=== PATIENT | male | born 1970 | race Hispanic/Latino ===

== ENCOUNTER 2021-04-21 09:18 | Emergency (ER) | payer BC ==
[2021-04-21 09:23] VITALS: BP 128/81
[2021-04-21] MEDS ORDERED: IBUPROFEN 800 MG TAB PO ONE (09:31)
--- NOTE | 2021-04-21 10:28 | XRay Report ---
RIGHT SHOULDER 3 VIEWS INDICATION / CLINICAL INFORMATION: Fall with right shoulder pain. COMPARISON: None available. FINDINGS: BONES / JOINT(S): There are eekb-vs-yelhjuqc degenerative changes involving the acromioclavicular mary nt with mild degenerative changes also noted involving the greater tuberosity of the humerus. There i s no evidence of acute fracture or subluxation. SOFT TISSUES: No significant abnormality. ADDITIONAL FINDINGS: The visualized right lung is clear. IMPRESSION: Degenerative changes without acute abnormality identified. Signer Name: Yasmayn Appiah MD Signed: 04/21/2021 10:23 AM Workstation Name: [id number]
--- NOTE | 2021-04-21 10:29 | XRay Report ---
CERVICAL SPINE 3 VIEWS INDICATION / CLINICAL INFORMATION: Fall with neck pain. COMPARISON: None available. FINDINGS: BONES / JOINT(S): There are minimal degenerative changes, most prominent at C5-6. There is no evidenc e of acute fracture or subluxation. SOFT TISSUES: The prevertebral soft tissues are normal. ADDITIONAL FINDINGS: The lung apices are clear. IMPRESSION: Minimal degenerative changes without acute abnormality identified. Signer Name: Yasmany Appiah MD Signed: 04/21/2021 10:25 AM Workstation Name: [id number]
--- NOTE | 2021-04-21 10:30 | XRay Report ---
LUMBOSACRAL SPINE 3 VIEWS INDICATION / CLINICAL INFORMATION: Fall with low back pain. COMPARISON: None available. FINDINGS: BONES / JOINT(S): There are mild degenerative changes involving the L5-S1 disc space. There are mild hypertrophic changes involving the facet joints in the lower lumbar spine bilaterally. The pedicles a re intact and the SI joints are normal. There is no evidence of acute fracture or subluxation. SOFT TISSUES: No significant abnormality. ADDITIONAL FINDINGS: There are surgical changes in the left upper abdomen. IMPRESSION: Mild spondylosis without acute abnormality. Signer Name: Yasmany Appiah MD Signed: 04/21/2021 10:26 AM Workstation Name: [id number]
--- NOTE | 2021-04-21 10:59 | Emergency Department Report ---
ED Fall HPI - General Chief Complaint: Fall Stated Complaint: ARM AND BACK INJURY Time Seen by Provider: 04/21/21 09:25 Source: patient Mode of arrival: Ambulatory Limitations: No Limitations - History of Present Illness Initial Comments: This is a 50-year-old male nontoxic, well nourished in appearance, no acute signs of distress presents to the ED with c/o of right shoulder pain, neck and lower back pain status post fall that occurred yesterday. Patient stated he was at [facility] and leaned over a table which broke and hit his right-sided should er/neck area and had a fall and developed lower back pains. Patient denies any other injuries or complaints. Patient denies any LOC. Patient denies loss of consciousness, head trauma, ecchymosis, chest pain, short of breath, headache, blurry vision, fever, chills, stiff neck, decreased range of motion, bladder or bowel instability, diaphoresis, nausea, vomiting, abdominal pain, joint pain or swelling, visual changes, chest wall tenderness, numbness or tingling sensation extremity. Patient agrees to good rectal tone with no bladder overflow. Patient is currently ambulatory with no assistance. Patient denies any EtOH or recreational drugs. Patient denies any drug allergies or significant PMH. MD Complaint: fall -: days(s) When Fall Occurred: unsure Loss of Consciousness: none Prolonged Down Time?: no Symptoms Prior to Fall: none Location: neck, back Location - Extremities: Right: Shoulder Severity: mild Severity scale (0 -10): 8 Quality: aching Context: tripped/slipped Associated Symptoms: neck pain. denies: headache, numbness, weakness, chest paint, shortness of breath, abdominal pain, hematuria, unable to walk, lightheaded, vertigo, confusion - Related Data Previous Rx's Medication Instructions Recorded Last Taken Type Cyclobenzaprine [Flexeril] 10 mg PO QHS PRN #10 tablet 04/21/21 Unknown Rx Naproxen 500 mg PO Q12H PRN #12 tablet 04/21/21 Unknown Rx Allergies Allergy/AdvReac Type Severity Reaction Status Date / Time SEAFOOD Allergy Hives Uncoded 04/21/21 09:21 ED Review of Systems ROS: Stated complaint: ARM AND BACK INJURY Other details as noted in HPI Comment: All other systems reviewed and negative Constitutional: denies: chills, fever Eyes: denies: eye pain, eye discharge, vision change ENT: denies: ear pain, throat pain Respiratory: denies: cough, shortness of breath, wheezing Cardiovascular: denies: chest pain, palpitations Endocrine: no symptoms reported Gastrointestinal: denies: abdominal pain, nausea, diarrhea Genitourinary: denies: urgency, dysuria Musculoskeletal: back pain. denies: joint swelling, arthralgia Skin: denies: rash, lesions Neurological: denies: headache, weakness, paresthesias Psychiatric: denies: anxiety, depression Hematological/Lymphatic: denies: easy bleeding, easy bruising ED Past Medical Hx - Past Medical History Previous Medical History?: No - Surgical History Hx Cholecystectomy: Yes - Medications Home Medications: Home Medications Medication Instructions Recorded Confirmed Last Taken Type Cyclobenzaprine [Flexeril] 10 mg PO QHS PRN #10 tablet 04/21/21 Unknown Rx Naproxen 500 mg PO Q12H PRN #12 tablet 04/21/21 Unknown Rx ED Physical Exam - General Limitations: No Limitations General appearance: alert, in no apparent distress - Head Head exam: Present: atraumatic, normocephalic - Eye Eye exam: Present: normal appearance, PERRL, EOMI - ENT ENT exam: Present: normal exam, normal orophraynx - Neck Neck exam: Present: normal inspection, full ROM. Absent: lymphadenopathy - Respiratory Respiratory exam: Present: normal lung sounds bilaterally. Absent: respiratory distress, wheezes, rales, rhonchi, stridor, chest wall tenderness, accessory muscle use, decreased breath sounds, prolonged expiratory - Cardiovascular Cardiovascular Exam: Present: regular rate, normal rhythm, normal heart sounds. Absent: bradycardia, tachycardia, irregular rhythm, systolic murmur, diastolic murmur, rubs, gallop - GI/Abdominal GI/Abdominal exam: Present: soft, normal bowel sounds. Absent: distended, tenderness, guarding, rebound, rigid, diminished bowel sounds - Extremities Exam Extremities exam: Present: normal inspection, full ROM, tenderness, normal capillary refill. Absent: joint swelling - Expanded Upper Extremity Exam Right General: Present: normal inspection Shoulder Exam: Present: normal inspection, full ROM, tenderness. Absent: swelling, abrasion, laceration, ecchymosis, deformity, crepidus, dislocation, erythema, tenderness over AC joint Upper Arm exam: Present: normal inspection, full ROM. Absent: tenderness, swelling Elbow exam: Present: normal inspection, full ROM. Absent: tenderness, swelling Forearm Wrist exam: Present: normal inspection, full ROM. Absent: tenderness, swelling Hand Wrist exam: Present: normal inspection, full ROM. Absent: tenderness, swelling Vascular: Present: normal capillary refill. Absent: vascular compromise (Neurovascular within normal limits) - Back Exam Back exam: Present: normal inspection, full ROM, paraspinal tenderness (Cervical lumbar paraspinal). Absent: tenderness, CVA tenderness (R), CVA tenderness (L), muscle spasm, vertebral tenderness, rash noted - Expanded Back Exam Expanded Back exam: Absent: saddle anesthesia Back exam: Negative Straight Leg Raising: Left, Right - Neurological Exam Neurological exam: Present: alert, oriented X3, normal gait - Psychiatric Psychiatric exam: Present: normal affect, normal mood - Skin Skin exam: Present: warm, dry, intact, normal color. Absent: rash ED Course Vital Signs 04/21/21 09:22 Temperature 97.3 F L Pulse Rate 68 Respiratory 18 Rate Blood Pressure 128/81 O2 Sat by Pulse 97 Oximetry - Reevaluation(s) Reevaluation #1: 04/21/21 11:02 Patient is speaking in full sentences with no signs of distress noted. ED Medical Decision Making - Radiology Data [address] [address] XRay Report Signed Patient: KACI LANZA MR#: [id number] 1 : 1970 Acct:[id number] Age/Sex: 50 / M ADM Date: 04/21/21 Loc: ED Attending Dr: Ordering Physician: JOSE M JACOBS NP Date of Service: 04/21/21 Procedure(s): XR shoulder 2+V RT Accession Number(s): [id number] cc: JOSE M JACOBS NP Fluoro Time In Minutes: RIGHT SHOULDER 3 VIEWS INDICATION / CLINICAL INFORMATION: Fall with right shoulder pain. COMPARISON: None available. FINDINGS: BONES / JOINT(S): There are arqv-ab-fkgikyqx degenerative changes involving the acromioclavicular joint with mild degenerative changes also noted involving the greater tuberosity of the humerus. There is no evidence of acute fracture or subluxation. SOFT TISSUES: No significant abnormality. ADDITIONAL FINDINGS: The visualized right lung is clear. IMPRESSION: Degenerative changes without acute abnormality identi fied. Signer Name: Mary Appiah MD Signed: 04/21/2021 10:23 AM Workstation Name: [id number] Transcribed By: RT Dictated By: Mary Appiah MD Electronically Authenticated By: Mary Appiah MD Signed Date/Time: 04/21/21 1023 DD/ 22 TD/TT: [address] [address] XRay Report Signed Patient: KACI LANZA MR#: [id number] 1 : 1970 Acct:[id number] Age/Sex: 50 / M ADM Date: 04/21/21 Loc: ED Attending Dr: Ordering Physician: JOSE M JACOBS NP Date of Service: 04/21/21 Procedure(s): XR spine lumbosacral 2-3V Accession Number(s): [id number] cc: JOSE M JACOBS NP Fluoro Time In Minutes: LUMBOSACRAL SPINE 3 VIEWS INDICATION / CLINICAL INFORMATION: Fall with low back pain. COMPARISON: None available. FINDINGS: BONES / JOINT(S): There are mild degenerative changes involving the L5-S1 disc space. There are mild hypertrophic changes involving the facet joints in the lower lumbar spine bilaterally. The pedicles are intact and the SI joints are normal. There is no evidence of acute fracture or subluxation. SOFT TISSUES: No significant abnormality. ADDITIONAL FINDINGS: There are surgical changes in the left upper abdomen. IMPRESSION: Mild spondylosis without acute abnormality. Signer Name: Mary Appiah MD Signed: 04/21/2021 10:26 AM Workstation Name: [id number] Transcribed By: RT Dictated By: Mary Appiah MD Electronically Authenticated By: Mary Appiah MD Signed Date/Time: 04/21/21 1026 DD/ TD/TT: [address] [address] XRay Report Signed Patient: KACI LANZA MR#: [id number] 1 : 1970 Acct:[id number] Age/Sex: 50 / M ADM Date: 04/21/21 Loc: ED Attending Dr: Ordering Physician: JOSE M JACOBS NP Date of Service: 04/21/21 Procedure(s): XR spine cervical 2-3V Accession Number(s): [id number] cc: JOSE M JACOBS NP Fluoro Time In Minutes: CERVICAL SPINE 3 VIEWS INDICATION / CLINICAL INFORMATION: Fall with neck pain. COMPARISON: None available. FINDINGS: BONES / JOINT(S): There are minimal degenerative changes, most prominent at C5-6. There is no evidence o f acute fracture or subluxation. SOFT TISSUES: The prevertebral soft tissues are normal. ADDITIONAL FINDINGS: The lung apices are clear. IMPRESSION: Minimal degenerative changes without acute abnormality identified. Signer Name: Mary Appiah MD Signed: 04/21/2021 10:25 AM Workstation Name: [id number] Transcribed By: RT Dictated By: Mary Appiah MD Electronically Authenticated By: Mary Appiah MD Signed Date/Time: 04/21/21 1025 DD/ 1024 TD/TT: - Medical Decision Making 50-year-old male that presents with a fall. Patient is stable and was examined by me. Patient received Motrin which stated symptoms improved and subsided. Patient be discharged with Flexeril and naproxen. Patient was educated on RICE therapy. Patient was instructed to no physical activity that extremity until cleared by orthopedic doctor patient was instructed to follow-up with a orthopedic doctor in 3-5 days or if symptoms worsen and continue return to [facility] room as soon as possible. At time of discharge, the patient does not seem toxic or ill in appearance. No acute signs of distress noted. Patient agrees to discharge treatment plan of care. No further questions noted by the patient. Critical care attestation.: If time is entered above; I have spent that time in minutes in the direct care of this critically ill patient, excluding procedure time. ED Disposition Clinical Impression: Fall Qualifiers: Encounter type: initial encounter Qualified Code(s): W19.XXXA - Unspecified fall, initial encounter Lower back injury Qualifiers: Encounter type: initial encounter Qualified Code(s): S39.92XA - Unspecified injury of lower back, initial encounter Right shoulder injury Qualifiers: Encounter type: initial encounter Qualified Code(s): S49.91XA - Unspecified injury of right shoulder and upper arm, initial encounter Neck injury Qualifiers: Encounter type: initial encounter Qualified Code(s): S19.9XXA - Unspecified injury of neck, initial encounter Disposition: HOME / SELF CARE / HOMELESS Is pt being admited?: No Does the pt Need Aspirin: No Condition: Stable Instructions: RICE Therapy for Routine Care of Injuries, [id number], Cyclobenzaprine tablets Additional Instructions: Follow-up with your orthopedic doctor in 3-5 days or if symptoms worsen such as bladder or bowel stability, chest pain, short of breath, numbness or tingling sensation in extremities, headache, dizziness, visual changes, nausea vomiting, or abdominal pain, return back to emergency room as was possible. Take naproxen and Flexeril as prescribed. Do not operate heavy machinery while taking Flexeril due to sedation No physical activity that extremity until cleared by orthopedic doctor Prescriptions: Cyclobenzaprine [Flexeril] 10 mg PO QHS PRN #10 tablet PRN Reason: Muscle Spasm Naproxen 500 mg PO Q12H PRN #12 tablet PRN Reason: Pain , Severe (7-10) Referrals: PRIMARY MD BRYSON [Primary Care Provider] - 3-5 Days MARY CLEMONS MD [Staff Physician] - 3-5 Days Forms: Work/School Release Form(ED) Time of Disposition: 11:13
== END 2021-04-21 11:40 | disposition home or self-care (01) ==
LOC: ED 09:18
DX: S39.92XA Unspecified injury of lower back, initial encounter (principal); S49.91XA Unspecified injury of right shoulder and upper arm, initial encounter; S19.9XXA Unspecified injury of neck, initial encounter; Z90.49 Acquired absence of other specified parts of digestive tract; Z91.013 Allergy to seafood; Z79.899 Other long term (current) drug therapy; W18.39XA Other fall on same level, initial encounter; Y93.89 Activity, other specified; Y92.89 Other specified places as the place of occurrence of the external cause; Y99.8 Other external cause status
CPT/HCPCS: 72040; 72100; 99283

== ENCOUNTER 2021-06-03 06:15 | Emergency (ER) | payer BC ==
[2021-06-03 06:21] VITALS: BP 134/89
--- NOTE | 2021-06-03 06:34 | Event Note ---
ED Screening Note ED Screening Note: 50-year-old male with past medical history of cholecystectomy about 3 to 4 years ago presents emerged department complaining of low 1 week history of progressively worsening waxing and waning epigastric and right upper quadrant pain of unknown etiology which seems to be worse when he eats. Some nausea associated but no hemoptysis no hematemesis hematochezia, no diarrhea no fever, chills, sweats This initial assessment/diagnostic orders/clinical plan/treatment(s) is/are subject to change based on patients health status, clinical progression and re- assessment by fellow clinical providers in the ED. Further treatment and workup at subsequent clinical providers discretion. Patient/guardian urged not to elope from the ED as their condition may be serious if not clinically assessed and managed. Initial orders include: Labs and will evaluate lab for the need for any further imaging
[2021-06-03 07:31] LABS: Basophils % (Auto) 0.5 % (0.0-1.8); Eosinophils # (Auto) 0.1 K/mm3 (0.0-0.4); Eosinophils % (Auto) 2.8 % (0.0-4.3); Hematocrit 38.5 % (35.5-45.6); Lymphocytes # (Auto) 1.5 K/mm3 (1.2-5.4); Lymphocytes % (Auto) 30.4 % (13.4-35.0); Mean Corpuscular HGB Conc 34 % (32-34); Mean Corpuscular Volume 93 fl (84-94); Monocytes # (Auto) 0.3 K/mm3 (0.0-0.8); Monocytes % (Auto) 6.4 % (0.0-7.3); Platelet Count 229 K/mm3 (140-440); Red Blood Count 4.14 M/mm3 (3.65-5.03); Red Cell Distribution Width 13.2 % (13.2-15.2)
[2021-06-03 07:37] LABS: Alanine Aminotransferase 24 units/L (7-56); Albumin 4.2 g/dL (3.9-5); BUN/Creatinine Ratio 10; Blood Urea Nitrogen 9 mg/dL (9-20); Calcium 9.4 mg/dL (8.4-10.2); Hemolysis Index 32
--- NOTE | 2021-06-03 08:58 | Emergency Department Report ---
ED Abdominal Pain HPI - General Chief Complaint: Abdominal Pain Stated Complaint: RIGHT SIDE PAIN Source: patient Mode of arrival: Ambulatory Limitations: No Limitations - History of Present Illness Initial Comments: 50-year-old male with past medical history of cholecystectomy about 3 to 4 years ago presents emerged department complaining of low 1 week history of progressively worsening waxing and waning epigastric and right upper quadrant pain of unknown etiology which seems to be worse when he eats. Some nausea associated but no hemoptysis no hematemesis hematochezia, no diarrhea no fever, chills, sweats. Patient does report he has had his gallbladder removed and byp ass surgery in 1999. He states that he went to [place] a week ago for the same complaint had a CT scan done but they did not tell him anything from the exam. Patient still is having discomfort. In the right upper quadrant. Onset/Timin -: week(s) Location: RUQ, epigastric Radiation: back Severity scale (0 -10): 7 Quality: stabbing, sharp Consistency: intermittent Improves With: nothing Worsens With: eating Associated Symptoms: nausea. denies: vomiting, diarrhea, constipation Treatments Prior to Arrival: NSAIDs - Related Data Previous Rx's Medication Instructions Recorded Last Taken Type Cyclobenzaprine [Flexeril] 10 mg PO QHS PRN #10 tablet 04/21/21 Unknown Rx Naproxen 500 mg PO Q12H PRN #12 tablet 04/21/21 Unknown Rx Allergies Allergy/AdvReac Type Severity Reaction Status Date / Time shellfish derived AdvReac Hives Verified 06/03/21 08:58 SEAFOOD Allergy Mild Hives Uncoded 06/03/21 06:22 ED Review of Systems ROS: Stated complaint: RIGHT SIDE PAIN Other details as noted in HPI Comment: All other systems reviewed and negative ED Past Medical Hx - Past Medical History Additional medical history: HX OF ULCERS - Surgical History Hx Cholecystectomy: Yes - Medications Home Medications: Home Medications Medication Instructions Recorded Confirmed Last Taken Type Cyclobenzaprine [Flexeril] 10 mg PO QHS PRN #10 tablet 04/21/21 Unknown Rx Naproxen 500 mg PO Q12H PRN #12 tablet 04/21/21 Unknown Rx ED Physical Exam - General Limitations: No Limitations General appearance: alert, in no apparent distress - Head Head exam: Present: atraumatic, normocephalic - Eye Eye exam: Present: normal appearance - ENT ENT exam: Present: mucous membranes moist - Neck Neck exam: Present: normal inspection - Respiratory Respiratory exam: Present: normal lung sounds bilaterally. Absent: respiratory distress - Cardiovascular Cardiovascular Exam: Present: regular rate, normal rhythm. Absent: systolic murmur, diastolic murmur, rubs, gallop - GI/Abdominal GI/Abdominal exam: Present: soft, tenderness (Right upper quadrant and epigastr ic area), normal bowel sounds - Rectal Rectal exam: Present: deferred - Extremities Exam Extremities exam: Present: normal inspection - Back Exam Back exam: Present: normal inspection - Neurological Exam Neurological exam: Present: alert, oriented X3 - Psychiatric Psychiatric exam: Present: normal affect, normal mood - Skin Skin exam: Present: warm, dry, intact, normal color. Absent: rash ED Course Vital Signs 06/03/21 06:17 Temperature 97.6 F Pulse Rate 73 Respiratory 18 Rate Blood Pressure 134/89 [Right] O2 Sat by Pulse 98 Oximetry ED Medical Decision Making - Lab Data Result diagrams: 06/03/21 06:53 06/03/21 06:53 Lab Results 06/03/21 06/03/21 Range/Units 06:53 06:53 WBC 4.8 (4.5-11.0) K/mm3 RBC 4.14 (3.65-5.03) M/mm3 Hgb 13.0 (11.8-15.2) gm/dl Hct 38.5 (35.5-45.6) % MCV 93 (84-94) fl MCH 32 (28-32) pg MCHC 34 (32-34) % RDW 13.2 (13.2-15.2) % Plt Count 229 (140-440) K/mm3 Lymph % (Auto) 30.4 (13.4-35.0) % [place] % (Auto) 6.4 (0.0-7.3) % Eos % (Auto) 2.8 (0.0-4.3) % Baso % (Auto) 0.5 (0.0-1.8) % Lymph # (Auto) 1.5 (1.2-5.4) K/mm3 [place] # (Auto) 0.3 (0.0-0.8) K/mm3 Eos # (Auto) 0.1 (0.0-0.4) K/mm3 Baso # (Auto) 0.0 (0.0-0.1) K/mm3 Seg Neutrophils % 59.9 (40.0-70.0) % Seg Neutrophils # 2.9 (1.8-7.7) K/mm3 Sodium 142 (137-145) mmol/L Potassium 4.1 (3.6-5.0) mmol/L Chloride 105.1 (98-107) mmol/L Carbon Dioxide 27 (22-30) mmol/L Anion Gap 14 mmol/L BUN 9 (9-20) mg/dL Creatinine 0.9 (0.8-1.3) mg/dL Estimated GFR > 60 ml/min BUN/Creatinine Ratio 10 % Glucose 96 (75-100) mg/dL Calcium 9.4 (8.4-10.2) mg/dL Total Bilirubin 0.80 (0.1-1.2) mg/dL AST 24 (5-40) units/L ALT 24 (7-56) units/L Alkaline Phosphatase 59 (35-129) units/L Total Protein 6.5 (6.3-8.2) g/dL Albumin 4.2 (3.9-5) g/dL Albumin/Globulin Ratio 1.8 % Lipase 26 (13-60) units/L - Radiology Data Radiology results: [place] [address] Cat Scan Report Signed Patient: KACI ELIZABETH MR#: [id number] 1 : 1970 Acct:[id number] Age/Sex: 50 / M ADM Date: 06/03/21 Loc: ED Attending Dr: Ordering Physician: WALKER AUGUSTINE Date of Service: 06/03/21 Procedure(s): CT abdomen pelvis w con Accession Number(s): [id number] cc: WALKER AUGUSTINE CT ABDOMEN AND PELVIS WITH CONTRAST HISTORY: RUQ and eigastric pain. COMPARISON: None. TECHNIQUE: CT images of the abdomen and pelvis were obtained following administration of intravenous contrast. All CT scans at this location are performed using CT dose reduction for ALARA by means of automated exposure control. CONTRAST: 100 ml of intravenous contrast administered. FINDINGS: Lungs/bones: There is minimal streaky atelectasis versus scarring in both lung bases. No consolidation or effusion. No acute osseous abnormality identified. Abdomen/pelvis: There is hepatic steatosis. The liver is otherwise unremarkable. Gallbladder is surgically absent. The spleen, pancreas, adrenals, and kidneys appear unremarkable. Gastric bypass change is present. 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 Prostate is normal. No pelvic free fluid or acute colonic abnormality identified. The appendix is normal. IMPRESSION: 1. No acute abnormality identified. 2. Incidental findings as above. Signer Name: Bob Anguiano MD Signed: 06/03/2021 10:15 AM Workstation Name: [id number] Transcribed By: SAM Dictated By: Bob Anguiano MD Electronically Authenticated By: Bob Anguiano MD Signed Date/Time: 06/03/21 1015 DD/ 1013 TD/TT: Print - Medical Decision Making 50-year-old male with past medical history of cholecystectomy about 3 to 4 years ago presents emerged department complaining of low 1 week history of progressively worsening waxing and waning epigastric and right upper quadrant pain of unknown etiology which seems to be worse when he eats. Some nausea asso ciated but no hemoptysis no hematemesis hematochezia, no diarrhea no fever, chills, sweats. Patient does report he has had his gallbladder removed and bypass surgery in 1999. He states that he went to [place] a week ago for the same complaint had a CT scan done but they did not tell him anything from the exam. Patient still is having discomfort. In the right upper quadrant. Labs are stable vital signs are stable. We will order a CT as patient has a history of cholecystectomy and bypass surgery. I like to rule out obstruction. Critical care attestation.: If time is entered above; I have spent that time in minutes in the direct care of this critically ill patient, excluding procedure time. ED Disposition Clinical Impression: Upper abdominal pain, unspecified Disposition: HOME / SELF CARE / HOMELESS Is pt being admited?: No Does the pt Need Aspirin: No Condition: Stable Additional Instructions: Labs are all stable no abnormalities. CT scan shows no acute abnormalities. 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 Referrals: PRIMARY CAREMD [Primary Care Provider] - 3-5 Days JO LINARES MD [Staff Physician] - 3-5 Days [facility] [Provider Group] - 3-5 Days Forms: Work/School Release Form(ED) Time of Disposition: 11:25
--- NOTE | 2021-06-03 10:19 | Cat Scan Report ---
CT ABDOMEN AND PELVIS WITH CONTRAST HISTORY: RUQ and eigastric pain. COMPARISON: None. TECHNIQUE: CT images of the abdomen and pelvis were obtained following administration of intravenous contrast. All CT scans at this location are performed using CT dose reduction for ALARA by means of automated exposure control. CONTRAST: 100 ml of intravenous contrast administered. FINDINGS: Lungs/bones: There is minimal streaky atelectasis versus scarring in both lung bases. No consolidati on or effusion. No acute osseous abnormality identified. Abdomen/pelvis: There is hepatic steatosis. The liver is otherwise unremarkable. Gallbladder is surg ically absent. The spleen, pancreas, adrenals, and kidneys appear unremarkable. Gastric bypass change is present. 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 Prostate is normal. No pelvic free fluid or acute colonic abnormalit y identified. The appendix is normal. IMPRESSION: 1. No acute abnormality identified. 2. Incidental findings as above. Signer Name: Bob Anguiano MD Signed: 06/03/2021 10:15 AM Workstation Name: [id number]
== END 2021-06-03 11:35 | disposition home or self-care (01) ==
LOC: ED 06:15
DX: R10.10 Upper abdominal pain, unspecified (principal); Z91.013 Allergy to seafood
CPT/HCPCS: 36415; 74177; 80053; 83690; 85025; 99284; Q9967